=== PATIENT | female | born 1980 | race American Indian/Alaskan Native ===

== ENCOUNTER 2021-03-23 09:56 | Emergency (ER) | payer SELFPAY ==
--- NOTE | 2021-03-23 11:21 | Emergency Department Report ---
ED Abdominal Pain HPI - General Stated Complaint: ABD PAIN Time Seen by Provider: 03/23/21 11:15 - History of Present Illness Initial Comments: Patient presents with upper abdominal pain that started last night. She has a history of pancreatitis. She believes that this is the same type of pain. It is sharp and stabbing. It does not radiate or migrate. She has had nausea associate with this. There has been no history of hematemesis or coffee-ground emesis. She has no history of trauma. She is unaware of why she would have had pancreatitis to begin with. She denies significant alcohol consumption. Patient states that she was never told she had gallbladder disease. Regardless, this feels the same. There is no lower abdominal pain associate with this. She states that it is worse with movement and palpation. It is also been worse with attempting to eat. - Related Data Previous Rx's Medication Instructions Recorded Last Taken Type Hyoscyamine Subl [Levsin Sl 0.125 0.125 mg SL Q6HR PRN #20 tab 03/23/21 Unknown Rx TAB] Sucralfate [Carafate] 1 gm PO Q6HR #120 tablet 03/23/21 Unknown Rx Allergies Allergy/AdvReac Type Severity Reaction Status Date / Time No Known Allergies Allergy Unverified 03/23/21 11:18 ED Review of Systems ROS: Stated complaint: ABD PAIN Other details as noted in HPI Comment: All other systems reviewed and negative Constitutional: denies: fever Eyes: denies: eye pain ENT: denies: throat pain Respiratory: denies: cough Cardiovascular: denies: chest pain Endocrine: denies: unexplained weight loss Gastrointestinal: as per HPI Genitourinary: denies: dysuria Musculoskeletal: denies: back pain Skin: denies: rash Neurological: denies: headache Hematological/Lymphatic: denies: easy bruising ED Past Medical Hx - Past Medical History Previous Medical History?: Yes Additional medical history: Pancreatitis - Medications Home Medications: Home Medications Medication Instructions Recorded Confirmed Last Taken Type Hyoscyamine Subl [Levsin Sl 0.125 0.125 mg SL Q6HR PRN #20 tab 03/23/21 Unknown Rx TAB] Sucralfate [Carafate] 1 gm PO Q6HR #120 tablet 03/23/21 Unknown Rx ED Physical Exam - General Limitations: No Limitations, Other ( pulse ox was noted to normal. Patient not hypoxic.) General appearance: alert, in distress ( Uncomfortable) - Head Head exam: Present: atraumatic, normocephalic, normal inspection - Eye Eye exam: Present: normal appearance, EOMI. Absent: scleral icterus - ENT ENT exam: Present: normal exam, normal orophraynx, normal external ear exam - Neck Neck exam: Present: normal inspection. Absent: meningismus - Respiratory Respiratory exam: Present: normal lung sounds bilaterally. Absent: respiratory distress - Cardiovascular Cardiovascular Exam: Present: regular rate, normal rhythm - GI/Abdominal GI/Abdominal exam: Present: soft, tenderness ( diffuse epigastric and left upper quadrant). Absent: guarding, rebound - Extremities Exam Extremities exam: Present: normal capillary refill - Back Exam Back exam: Absent: CVA tenderness (R), CVA tenderness (L) - Neurological Exam Neurological exam: Present: alert, oriented X3, CN II-XII intact. Absent: motor sensory deficit - Psychiatric Psychiatric exam: Present: normal affect, normal mood - Skin Skin exam: Present: warm, dry ED Course Vital Signs 03/23/21 03/23/21 03/23/21 11:19 11:53 13:13 Temperature 98.1 F Pulse Rate 98 H Respiratory 22 18 18 Rate Blood Pressure 142/77 O2 Sat by Pulse 99 100 Oximetry - Reevaluation(s) Reevaluation #1: 03/23/21 11:21 IV and labs have been ordered. Reevaluation #2: 03/23/21 13:30 Labs have been noted. ED Medical Decision Making - Lab Data Result diagrams: 03/23/21 11:54 03/23/21 11:54 - Medical Decision Making Patient present with generalized abdominal pain in the epigastric and upper abdomen area. She had related this to pancreatitis. Currently, there is no change in lipase suggestive of an acute pancreatitis. Patient still could have pancreatitis with normal labs however. She certainly does not have evidence of hepatitis. She does not have intractable pain or vomiting. She does not have evidence of or ectopic. There is no urinary symptoms suggestive of UTI. It would be unlikely for urinary symptoms to be related to epigastric brett n. She is not having an exertional component or chest pain. I do not believe this represents ACS. Patient was treated symptomatically and referred for outpatient evaluation and follow-up. Critical Care Time: No Critical care attestation.: If time is entered above; I have spent that time in minutes in the direct care of this critically ill patient, excluding procedure time. ED Disposition Clinical Impression: Acute epigastric pain Disposition: HOME / SELF CARE / HOMELESS Is pt being admited?: No Does the pt Need Aspirin: No Condition: Stable Instructions: Abdominal Pain, Adult, Pain Without a Known Cause Additional Instructions: Have a bland diet. Drink any water. Return for problems. Follow-up with your regular doctor for recheck and further management. Avoid spicy foods. Prescriptions: Sucralfate [Carafate] 1 gm PO Q6HR #120 tablet Hyoscyamine Subl [Levsin Sl 0.125 TAB] 0.125 mg SL Q6HR PRN #20 tab PRN Reason: Pain, Moderate (4-6)
[2021-03-23 11:23] VITALS: BP 142/77
[2021-03-23] MEDS ORDERED: METOCLOPRAMIDE 10 MG/2 ML INJ IV NR (12:00)
[2021-03-23] MEDS ORDERED: fentaNYL 100 MCG/2 ML INJ IV NR (12:00)
[2021-03-23] MEDS ORDERED: diphenhydrAMINE 50 MG/ML VIAL IV NR (12:00)
[2021-03-23 12:32] LABS: Hematocrit 36.2 % (30.3-42.9); Hemoglobin 12.4 gm/dl (10.1-14.3); Mean Corpuscular HGB Conc 34 % (30-34); Mean Corpuscular Volume 87 fl (79-97); Platelet Count 237 K/mm3 (140-440); Red Blood Count 4.15 M/mm3 (3.65-5.03)
[2021-03-23 12:52] LABS: Alanine Aminotransferase 12 units/L (7-56); Albumin 4.7 g/dL (3.9-5); Blood Urea Nitrogen 11 mg/dL (7-17); Calcium 9.4 mg/dL (8.4-10.2); Hemolysis Index 0
[2021-03-23 12:57] LABS: BUN/Creatinine Ratio 16
== END 2021-03-23 14:50 | disposition home or self-care (01) ==
LOC: ED 09:56
DX: R10.13 Epigastric pain (principal); R10.12 Left upper quadrant pain; R11.0 Nausea; Z98.890 Other specified postprocedural states; Z79.899 Other long term (current) drug therapy
CPT/HCPCS: 36415; 80053; 83690; 84703; 85027; 96374; 96375; 99283; J1200; J2765; J3010